=== PATIENT | male | born 1940 | race Two or more races ===

== ENCOUNTER 2025-03-10 06:30 | Inpatient (IN) | payer MEDICARE, BC ==
[2025-03-10] VITALS (41 sets, daily range): BP systolic 106–186; BP diastolic 30–143; PULSE 68–112; RESP 11–26; TEMP 97.8–99.5; O2SAT 92–99
[~2025-03-10] VITALS: Ht 165.1 cm; Wt 63.5 kg
[~2025-03-10 06:30] MED LIST: ATOR20TA50 PO; CLOP75TA28 PO; ISOS1TAB28 PO; METF-929 PO; METH500T44 PO; METO25TA5 PO; MONT-8 PO; NITR0.4S29 SL; OMEP20TA PO; SITA100T7 PO
[2025-03-10] MEDS: VERAPAMIL 2.5MG/ML INJ 2ML VIAL IV ONE (08:04)
[2025-03-10] MEDS: ANGIOMAX 250 MG VIAL IV ONE ×2 (08:04→09:11)
[2025-03-10] MEDS: HEPARIN SODIUM (PORCINE) 5000 UNITS/ML 1ML VIAL ONE (08:04)
[2025-03-10] MEDS: SODIUM CHL 0.9% 50 ML ONE ×2 (08:05→09:11)
[2025-03-10] MEDS: fentaNYL CITRATE 100 MCG/2 ML VL ONE (08:05)
[2025-03-10] MEDS: MIDAZOLAM HCL 2MG/2ML 2ml VIAL (1mg/ml) ONE ×2 (08:05→10:16)
[2025-03-10] MEDS: NITROGLYCERIN 50MG/250ML 250 ML IV ONE (08:05)
[2025-03-10] MEDS: LIDOCAINE 2%HCL (LOCAL ANESTH.) INJ 20ML MDV ONE (08:12)
[2025-03-10] MEDS: hydrALAZINE HCL 20 MG/ML VL ONE (08:45)
[2025-03-10] MEDS: IODIXANOL 320MG/ML 100ML BTL IV ONE ×3 (09:02→10:18)
[2025-03-10] MEDS: HYDROmorphone HCL 2 MG/ML VL/or syr ONE (09:03)
[2025-03-10] MEDS: TICAGRELOR 90 MG TAB ONE (10:17)
--- NOTE | 2025-03-10 11:45 | DVHOP2 ---
Operative Report Procedures performed: Left heart catheterization and bilateral coronary angiogram Moderate sedation lasting more than 90 minutes PCI/drug-eluting stent deployment of mid and distal LAD Balloon angioplasty of ramus intermedius Attempted Balloon angioplasty of proximal LCX Diagnosis: Multivessel coronary artery disease Status post PCI/drug-eluting stent deployment of mid and distal LAD. Ramus intermedius had 90% lesion, status post balloon angioplasty LCX: LCX had up to 95% lesion prior to the patent stent in it, status post attempted balloon angioplasty RCA: RCA had up to 70% in stent stenosis LVEF: 65% Cardiac suggestion for management: Dual antiplatelet therapy (loaded with Brilinta/aspirin) for at least 1 year High potency statin, beta blockers, AMY inhibitors versus ARB Optimized medical therapy Lifestyle and risk factor modifications Medical therapy for lesions in RCA/LCX/ramus intermedius is suggested (if patient is symptomatic, PCI in higher level of care can be justified) Findings: LVEF: 65% LVEDP: 15 mm Hg There was no transaortic valve pressure gradient Left main: Left main was coming off the left sinus of Valsalva. It was free of disease. LAD: LAD was coming off the left main. Mid LAD had 95% lesion. Distal LAD had 95% lesion. LCX: LCX was coming off the left main. There was a patent stent in proximal to mid LCX. There was 99% lesion prior to the stent Ramus intermedius: Ramus intermedius was a medium-sized vessel which came off the left main. It had 99% proximal lesion RCA: RCA was coming off the right sinus of Valsalva. It was a dominant vessel. Was a patent stent in proximal RCA. There was a focal 70% lesion in proximal section of the stent. Presentation: Patient is a 84-year-old gentleman who presented to the office with chest pain. Does have history of coronary artery disease and has had PCI in 2005 (LCX/RCA). Other comorbidities include diabetes mellitus, hypertension, low back pain, integrative disc disease and hard of hearing. He has had cholecystectomy before. Echocardiogram revealed ejection fraction of 60-65%, mild concentric left ventricular hypertrophy, mild MVP/MR/TR. Right ventricular systolic pressure was less than 35 mm Hg. Nuclear stress test of December 2024 was abnormal and the patient was sent for cardiac catheterization. Procedure: After obtaining informed consent, the patient was brought to the labourers. He was prepped and draped in sterile fashion. Right radial artery was used for access site. In total, 3 mg of Versed and 100 mcg of fentanyl and 2 mg of Dilaudid was used for moderate sedation (lasting more than 90 minutes). Using Seldinger technique, the right radial artery was accessed and 6 [place]uvian slender sheath was inserted into it. 2.5 mg of verapamil and 200 mcg of nitroglycerin were given as a cocktail into the right radial sheath. 4000 units of heparin was given peripherally. A 5 [place]uvian tiger 4 diagnostic catheter was used to perform left heart catheterization (obtaining pressures and performing left ventriculography) and right coronary angiography. A 5 [place]uv[place] 3.5 JL diagnostic catheter was used to perform left coronary angiography. We did recognize multivessel disease. We did observe the patient's comorbidities and age and decided to proceed with percutaneous intervention. Patient was started on Angiomax. We started with intervening in LAD. A 6 [place]uv[place] XB 3 guiding catheter was used to access the left coronary system. A run-through wire was used to cross the lesions in LAD. A 2.5 by 15 compliant balloon was used to perform predilatation in mid LAD and distal LAD lesions. We proceeded to deploy stents. A 2.25 x 15 drug-eluting desirae stent was deployed across the distal LAD lesion and inflated to 16 atmospheres. A 2.5 x 15 drug-eluting desirae stent was deployed across the mid LAD lesion (inflated to 16 atmospheres). At this point we decided to proceed with intervention in ramus intermedius. Run-through wire crossed the lesion in ramus intermedius. Balloon angioplasty of the ramus intermedius lesion was performed using a 2.5 x 15 compliant balloon repeatedly. Stent could not cross the lesion. At this point we recognized that the lesion in proximal LCX had closed. We used multiple wires to cross the lesion unsuccessfully. We even used balloon over the wire technique unsuccessfully. Patient himself regained flow (BO 3 flow) into LCX territory. Our wire did not cross. Decision was made to forego any further attempts for intervening (patient received 39 minutes of fluoro time and 6300 DAP). He was asymptomatic. There was no EKG changes. It did not have any chest pain. It is of note that prior to intervention in LAD, BO flow into LAD was BO 3 flow. Post intervention in LAD, mid LAD lesion had 0% remaining lesion and distal LAD had 0% remaining lesion. Post intervention in LAD, BO flow into LAD remained BO 3 flow. Prior to intervention in ramus intermedius, BO flow into ramus intermedius was BO 3 flow, post intervention BO flow into ramus intermedius remained BO 3 flow. Post intervention in ramus intermedius (balloon angioplasty) the remaining disease in ramus intermedius was 40%. Previous attempt for intervention in LCX, BO flow into LCX with BO 3 flow, post intervention BO flow into LCX remained BO 3 flow. Lesion in LCX remain the same (we could not cross it). Total bleeding was less than 20 mL. There was no dissection/hematoma/perforation. Patient tolerated procedure with no complications. Right radial artery access site was managed by a TR band. Fluoroscopy time: 39.5 minutes contrast: 280 mL of ShahramipaLAURIE Bennett MD Mar 10, 2025 11:45
--- NOTE | 2025-03-10 13:10 | DVH ---
EXAM: CT STROKE CTH HISTORY: 84-year-old male with no history given. COMPARISON: CT HEAD WO on DOS: 10/20/24 TECHNIQUE: Post IV contrast axial CT images of the head were performed. Sagittal and coronal reformat richrad images were obtained. This CT exam was performed using 1 or more of the following dose reduction techniques: Automated exposure control, adjustment of the mA and/or kv according to patient size, or the use of iterative reconstruction techniques. Radiation Dose: CTDI volume is 65.2 mGy. Dose-length product is 1282.85 mGy*cm FINDINGS: There is mild global brain atrophy. There is mild decreased attenuation in the periventricular white matter. No intracranial hemorrhage, mass, midline shift, hydrocephalus, or evidence of acute large ve ssel infarct. Contrast is identified in the major intracranial vessels and dural venous sinuses. Ther e is complete opacification of the left frontal and maxillary sinuses; partial opacification of the l eft ethmoid air cells; mild mucosal thickening of the left sphenoid sinus. The bilateral mastoid air cells and middle ear spaces are clear. No cranial fracture or scalp edema. There is likely frontal sc alp scarring. IMPRESSION: 1. Global brain atrophy and chronic ischemic changes without evidence of acute intracranial process. 2. Severe left-sided paranasal sinus disease, greatest in the frontal and maxillary sinuses. Recomme nd nonemergent otolaryngology consultation if not already obtained.
--- NOTE | 2025-03-10 13:35 | DVH ---
EXAM: CT ANGIO HEAD/NECK HISTORY: code stroke COMPARISON: CT scan of the head from earlier same day. TECHNIQUE: High-resolution helical CT images of the head and neck were performed with 100 ml omnipaqu e 350 IV contrast utilizing CTA protocol. Sagittal and coronal reformatted images and 3-D MIP reconst ructions were obtained. This CT exam was performed using one or more of the following dose reduction techniques: Automated exposure control, adjustment of the mA and/or kV according to patient size, or use of iterative reconstruction technique. Radiation Dose: CT Dose: CTDI volume is 22.55 mGy. Dose-length product is 840.93 mGy*cm FINDINGS: [place] of Chu: No evidence of aneurysmal dilatation or significant stenosis about the ci rcle of Chu. The bilateral MCAs, ACAs, and web analytics developer are widely patent. There are thick atherosclerotic calcifications of the bilateral cavernous ICAs with mild diffuse luminal stenosis. The bilateral pe trous ICAs are patent. Right carotid system: No significant stenosis of the CCA, ICA, or ECA origin. There are postoperative changes of carotid endarterectomy. Left carotid system: No significant stenosis of the CCA, ICA, or ECA origin. There are postoperative changes of carotid endarterectomy. Vertebrobasilar: The right vertebral artery is patent and dominant. The left vertebral artery is pat ent to the L1 level, then tapers and may be occluded prior to joining the right side. Miscellaneous: There is advanced cervical degenerative disc disease and facet arthropathy. There is s light anterolisthesis C3 on C4 and C4 on C5 without evidence of facet dislocation. There is moderate spinal canal stenosis at C2-C3; ilzq-tr-jowrabhy spinal canal stenosis at C4-C5 and C5-C6. There is m ultilevel significant neural foraminal stenosis in the cervical spine bilaterally. There is complete opacification of the left frontal and maxillary sinuses, partial opacification of the left ethmoid si nus. There is a dental cavity involving the most posterior right mandibular molar tooth. There is adalid cency about the root of the left maxillary 2nd molar tooth. There is likely a dental cavity of the l eft maxillary 3rd molar tooth. IMPRESSION: 1. No aneurysmal dilatation or significant stenosis about the [place] of Chu. 2. No significant stenosis of the bilateral cervical carotid arteries or right vertebral artery. The left vertebral artery tapers distally and may be occluded at its terminus versus appearance due to de velopmental hypoplasia. 3. Postoperative changes of bilateral carotid endarterectomy. 4. Severe left-sided paranasal sinus disease, greatest in the left frontal and maxillary sinuses. 5. Advanced cervical degenerative disc disease and facet arthropathy with multilevel significant neur al foraminal stenosis, moderate spinal canal stenosis C2-C3, and zexu-rr-dfaljypf spinal canal stenos is at C4-C5 and C5-CRecommend follow-up noncontrast MRI of the cervical spine on an outpatient noneme rgent basis for better characterization, especially if the patient complains of upper extremity radic ular symptoms. 6. Multiple dental caries and periapical pathology as detailed above. Recommend outpatient dental co nsultation.
[2025-03-10] MEDS ORDERED: MORPHINE SULFATE INJ 2 MG/ml SYRG IV PRN (14:45)
[2025-03-10] MEDS ORDERED: ACETAMINOPHEN 325 MG TAB PO PRN (14:45)
[2025-03-10] MEDS ORDERED: NITROGLYCERIN 0.4 MG SL TAB SL PRN (14:45)
[2025-03-10] MEDS ORDERED: DOCUSATE SOD 100 MG CAP PO PRN (14:45)
[2025-03-10] MEDS ORDERED: ONDANSETRON HCL 4 MG/2 ML VIAL IV PRN (14:45)
[2025-03-10] MEDS ORDERED: HYDROcodone-ACET 5/325MG TAB PO PRN (14:45)
--- NOTE | 2025-03-10 15:07 | DVHHP2 ---
History of Present Illness Reason for Visit: Left heart cath History of Present Illness Satish Wagner is an 84-year-old male with past medical history of DDD, hypertension, hyperlipidemia, chest pain, and diabetes who came to the hospital for a scheduled outpatient left heart cath. 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 Reversal agents were given and a code stroke was called. Patient did arouse after the reversal agents were given, but still unable to say his name or answer questions. CT of head and CT angio of head and neck completed, no acute findings. Patient will be admitted for neurology evaluation and MRI of brain. Cardiovascular: HTN, hyperipidemia Endocrine: Diabetes Past Surgical History: Cholecystectomy, Other (bilateral carotid endarterectomy, bowel resection), Tonsillectomy Smoke: No ALCOHOL: none Drugs: None Lives: with Family Review of Systems Constitutional: No: Fever, Chills, Sweats, Weakness, Malaise, Other Eyes: No: Pain, Vision change, Conjunctivae inflammation, Eyelid inflammation, Other, Redness ENT: No: Ear pain, Ear discharge, Nose pain, Nose discharge, Nose congestion, Mouth pain, Mouth swelling, Throat pain, Throat swelling, Other Respiratory: No: Cough, Dry, Shortness of breath, SOB with excertion, Wheezing, Hemoptysis, Pleuritic Pain, Sputum, Wheezing, Other Cardiovascular: No: Chest Pain, Palpitations, Orthopnea, Paroxysmal Noc. Dyspnea, Edema, Lt Headedness, Other Gastrointestinal: No: Nausea, Vomiting, Abdominal Pain, Diarrhea, Constipation, Melena, Hematochezia, Other Genitourinary: No Dysuria, No Frequency, No Incontinence, No Hematuria, No Retention, No Other Musculoskeletal: No: other, neck pain, shoulder pain, arm pain, back pain, hand pain, leg pain, foot pain Skin: No: Rash, Lesions, Jaundice, Bruising, Other Neurological: Weakness, Change in speech, Confusion; No: Numbness, Incoordination, Seizures, Other Allergies: Coded Allergies: Penicillins (Verified Allergy, Unknown, Rash, 03/06/25) Medications Current Medications Medications Dose Ordered Sig/Lex Route Start Time Stop Time Status Last Admin Dose Admin Ticagrelor 90 mg BID PO 03/10/25 22:00 Aspirin 81 mg DAILY PO 03/11/25 10:00 Exam Vital Signs Vital Signs Date Time Temp Pulse Resp B/P (MAP) Pulse Ox O2 Delivery O2 Flow Rate FiO2 03/10/25 11:07 108 16 148/76 (100) 92 03/10/25 10:07 97.8 97.8 General Appearance: Other (Drowsy, unable to answer questions) HEENT: Atraumatic, PERRLA, Mucous membr. moist/pink (Mucous memebr dry) Respiratory: Clear to auscultation, Normal air movement Cardiovascular: Normal S1, Normal S2, Other (ST) Abdominal: Normal bowel sounds, Soft, No tenderness Extremities: No clubbing, No cyanosis, No edema, Normal pulses Skin: No breakdown, No significant lesion Neuro: Other (Drowsy, unable to answer questions, unable to ambulate, weakness) Labs/Xrays Labs Test 03/10/25 12:50 03/10/25 12:33 Range/Units Activated Partial Thromboplast Time 97.3 *H 24.5-34.5 SEC POC Glucose 239 H 70-106 mg/dl CBC and CMP ordered, awaiting results. Chest X-ray ordered, MRI of brain ordered, SEPSIS Sepsis Screen Physician Orders Cl Left Heart Cath (03/10/25 07:50) Post Cath Vital Signs Q 15min (03/10/25 ) Post Cath Activity Protocol (03/10/25 10:20) Cardiac Diet-2gna,Lofat,Lochol (03/10/25 Lunch) Hold All Metformin For 48 Hour (03/10/25 10:20) Communication Order (03/10/25 10:20) Insert/Manage Urinary Catheter QSHIFT (03/10/25 11:00) Ticagrelor (Brilinta) (03/10/25 22:00) Aspirin Tablet (03/11/25 10:00) Basic Metabolic Panel (03/12/25 10:00) Ct Head Cva (03/10/25 12:20) Stroke Assessment (03/10/25 12:24) Accurate Weight In Kg (03/10/25 12:24) Accucheck (03/10/25 12:24) Angio Head/Neck (03/10/25 12:24) 2 Large Bore Ivs (20mg Or Larg (03/10/25 12:24) Nursing Dysphagia Screen (03/10/25 12:24) Neuro Checks Per Unit Protocol (03/10/25 12:24) Electrocardigram (03/10/25 12:35) *Consult Dr. Andrew Serrano (03/10/25 14:04) Admit (03/10/25 14:45) Code Status (03/10/25 14:45) Hydrocodone-Acet 5/325mg Tab ([place] 5/32 (03/10/25 14:45) Ondansetron Hcl (Zofran) (03/10/25 14:45) Docusate Sodium Capsule (Colace Capsule) (03/10/25 14:45) Fall Risk Precautions In Place QSHIFT (03/10/25 14:45) Condition: Critical (03/10/25 14:45) Acetaminophen Tablet (Tylenol Tablet) (03/10/25 14:45) Nitroglycerin Sublingual (Ntrostat Subli (03/10/25 14:45) Morphine Sulfate Injection (03/10/25 14:45) Stat Ekg For Chest Pain (03/10/25 14:45) Notify Md Of Changes From Base (03/10/25 14:45) Risk Engineer For 24 Hours (03/10/25 14:45) Emergency Dysrhythmia Protocol (03/10/25 14:45) Rhythm Strips Once Every Shift (03/10/25 14:45) Oxygen By Nasal Cannula (03/10/25 14:45) Vital Signs Date Time Temp Pulse Resp B/P (MAP) Pulse Ox O2 Delivery O2 Flow Rate FiO2 03/10/25 11:07 108 16 148/76 (100) 92 03/10/25 10:53 112 14 148/76 (100) 96 03/10/25 10:38 102 11 155/98 (117) 96 03/10/25 10:22 95 19 138/67 (90) 97 03/10/25 10:19 96 19 142/69 (93) 95 03/10/25 10:07 97.8 102 19 153/117 (129) 94 97.8 Medications Medications Dose Ordered Sig/Lex Route Start Time Stop Time Status Last Admin Dose Admin Iodixanol 64,000 mg STK-MED ONCE IV 03/10/25 07:33 03/10/25 07:30 DC 03/10/25 10:18 64,000 MG Assessment/Plan Assessment/Plan Assessment: Possible stroke, Possible adverse reaction to sedation, Coronary artery disease, Diabetes, Hypertension, Hyperlipidemia, Plan: Admit to SDU, Neurology consult, Cardiology consult, MRI of brain, IV hydration, Home medications reconciled, Plan discussed with: Patient, Son My Orders Orders - AUGUSTUS WATKINS Procedure Category Date Status Time Admit ADMIT 03/10/25 Transmitted 14:45 Code Status CODE 03/10/25 Transmitted 14:45 Hydrocodone-Acet [facility] 03/10/25 Transmitted 5/325mg Tab ([place] 14:45 Ondansetron Hcl [facility] 03/10/25 Verified (Zofran) 14:45 Docusate Sodium [facility] 03/10/25 Verified Capsule (Colace 14:45 Fall Risk Precautions [facility] 03/10/[address] 14:45 Condition: Critical [facility] 03/10/25 Verified 14:45 Acetaminophen Tablet [facility] 03/10/25 Verified (Tylenol Tablet) 14:45 Nitroglycerin [facility] 03/10/25 Verified Sublingual (Ntrostat 14:45 Morphine Sulfate [facility] 03/10/25 Verified Injection 14:45 Stat Ekg For Chest [facility] 03/10/25 Verified Pain 14:45 Notify Md Of Changes [facility] 03/10/25 Verified From Base 14:45 Risk Engineer For [facility] 03/10/25 Verified 24 Hours 14:45 Emergency Dysrhythmia [facility] 03/10/25 Verified Protocol 14:45 Rhythm Strips Once [facility] 03/10/25 Verified Every Shift 14:45 Oxygen By Nasal RT 03/10/25 Verified Cannula 14:45 Date of Service: Mar 10, 2025 Billing Provider: AUGUSTUS WATKINS Common Visit Codes: [id number] INP/OBS CARE (HIGH) AUGUSTUS WATKINS Mar 10, 2025 15:07
--- NOTE | 2025-03-10 15:49 | DVH ---
EXAM: XY CHEST PORTABLE HISTORY: FOR MRI TECHNIQUE: 1 view of the chest COMPARISON: XR CHEST 2 VIEWS on DOS: 03/03/25 FINDINGS/IMPRESSION: LUNGS: No pleural effusion, consolidation, or pneumothorax. Central pulmonary vascular congestion. Peripheral interstitial edema MEDIASTINUM: Unremarkable BONES: No acute osseous abnormality OTHER: None
--- NOTE | 2025-03-10 16:08 | DVH ---
PROCEDURE: MRI BRAIN HEAD WO CONTRAST Indication: R/O stroke COMPARISON: 03/10/2025 TECHNIQUE: Multiplanar multisequence images of the brain are obtained. FINDINGS: Examination degraded by motion There is small region friction in the left cerebellum measuring 6 mm. Bhfg-qk-dhzjjoxi periventricul ar and subcortical white matter T2 and FLAIR hyperintense changes. There is no intracranial hemorrhag e. No extra-axial fluid collection, mass effect or midline shift. The ventricles are midline and norm al in size. The cisterns are patent. Normal intracranial flow voids are preserved. No abnormal suscep tibility signal. Frontal, ethmoid, left maxillary sinus disease. Bilateral mastoid effusions The visualized orbits are unremarkable. IMPRESSION: Examination degraded by motion. 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 Azml-uz-pydylodb chronic microvascular ischemic changes. Paranasal sinus disease. Bilateral mastoid effusions.
[2025-03-10] MEDS: SODIUM CHLORIDE 0.9% 1,000 ML IV ONE (16:11)
[2025-03-10] MEDS: hydrALAZINE HCL 20 MG/ML VL IV PRN (16:14)
[2025-03-10] MEDS: METOPROLOL TARTRATE 25 MG TAB PO ONE (16:15)
[2025-03-10] MEDS ORDERED: DEXTROSE (50%) 50ML SYRG IV PRN (18:15)
[2025-03-10] MEDS: InsuLIN REG 1unit/0.01ml Soln (100units/ml) ONE (18:20)
--- NOTE | 2025-03-10 18:21 | DVHINCON2 ---
Date of service: Mar 10, 2025 History of Present Illness HPI Patient is a 84-year-old gentleman who originally presented to the hospital for elective cardiac catheterization. He had presented to the office with occasional chest discomfort. He has past history included coronary artery disease and status post Old PCIs. And nuclear stress test of December 2024 was abnormal in the patient who had been sent for cardiac catheterization. Cardiac catheterization was performed. After cardiac catheterization, the patient's somehow became confused and had some dysarthria. Code stroke was called. Imaging of the brain has been performed. MRI questions small cerebral CVA. Patient has been started on aspirin/Brilinta (had PCI/drug-eluting stent deployment of LAD and balloon angioplasty of ramus intermedius). Home Meds Reported Medications Isosorbide Mononitrate (Isosorbide Mononitrate Er) 30 Mg Tab, 30 MG PO DAILY for CHEST PAIN, MG 03/06/25 Metformin HCl (Metformin Hydrochloride) 1,000 Mg Tab, 1000 MG PO DAILY for DIABETES, TAB 03/06/25 Clopidogrel Bisulfate (Plavix) 75 Mg Tab, 1 TAB PO DAILY for S/P CARDIAC STENTS, #90 TAB 1 Refill 03/06/25 Methylcellulose (Laxative) (Fiber Therapy) 500 Mg Tab, 500 MG PO DAILY for CONSTIPATION, TAB 03/06/25 Montelukast Sodium (MONTELUKAST SODIUM) 10 Mg Tab, 1 TAB PO DAILY, #30 TAB 5 Refills 03/06/25 Metoprolol Tartrate (Metoprolol Tartrate) 25 Mg Tab, 1 TAB PO BID for HTN, #180 TAB 1 Refill 03/06/25 Nitroglycerin (NTROSTAT SUBLINGUAL) 0.4 Mg Sl, 0.4 MG SL PRN for CHEST PAIN, TAB *MAY REPEAT EVERY 5 MINUTES X 3 TOTAL IF NO RELIEF, INITIATE ANALGESIC THERAPY. NOTIFY PHYSICIAN *Do not crush. 03/06/25 Sitagliptin Phosphate (Januvia) 100 Mg Tab, 1 TAB PO DAILY for DIABETES, #30 TAB 5 Refills 03/06/25 Omeprazole (Gnp Omeprazole) 20 Mg Tab, 40 MG PO DAILY for GERD, TAB 03/06/25 Atorvastatin Calcium (ATORVASTATIN CALCIUM) 20 Mg Tab, 1 TAB PO DAILY for High Cholesterol, #30 TAB 5 Refills 03/06/25 Past Medical History Others Past medical history included coronary artery disease and old history of PCI, degenerative disc disease, low back pain, diabetes mellitus, hypertension and history of poor hearing. Drugs: None Lives with: With family Review of Systems All Other Systems Fourteen point review of system was performed. Relevant findings as per above and as per HPI. Otherwise negative H&P Exam Vital Signs Vital Signs Date Time Temp Pulse Resp B/P (MAP) Pulse Ox O2 Delivery O2 Flow Rate FiO2 03/10/25 17:37 81 16 134/55 (81) 95 03/10/25 15:00 98.8 98.8 Head Exam: Normal inspection Eye Exam: bilateral eye PERRL Mouth: Normal Inspection Pulmonary/Respiratory: Lungs clear Cardiovascular/Chest: Regular rate Peripheral Pulses: 2+ carotid (R), 2+ carotid (L), 2+ femoral (R), 2+ femoral (L), 2+ dorsalis pedis (R), 2+ dorsalis pedis (L), 2+ Radial (R), 2+ Radial (L) Abdominal Exam: Normal bowel sounds, Soft Labs/Xrays Labs Test 03/10/25 12:50 03/10/25 12:33 Range/Units Activated Partial Thromboplast Time 97.3 *H 24.5-34.5 SEC POC Glucose 239 H 70-106 mg/dl Assessment/Plan Plan Patient is a 84-year-old gentleman who originally presented to the hospital for elective cardiac catheterization. He had presented to the office with occasional chest discomfort. He has past history included coronary artery disease and status post Old PCIs. And nuclear stress test of December 2024 was abnormal in the patient who had been sent for cardiac catheterization. Cardiac catheterization was performed. After cardiac catheterization, the patient's somehow became confused and had some dysarthria. Code stroke was called. Imaging of the brain has been performed. MRI questions small cerebral CVA. Patient has been started on aspirin/Brilinta (had PCI/drug-eluting stent deployment of LAD and balloon angioplasty of ramus intermedius). Denies acute distress. Somehow confused. No JVD. Mucosa is pink and wet. No carotid bruit. No goiter. Not using accessory muscles of breathing. Lungs are clear to auscultation. Cardiac: Regular, no thrill/gallop. Lungs are clear to auscultation Abdomen is soft. Bowel sound is positive. There is no gross mass/hepatomegaly. There is no peripheral edema. Dorsalis pedis is 2+ bilateral. Cardiac catheterization access site (right radial) without hematoma. Capillary filling is 2+. Past medical history included coronary artery disease and old history of PCI, degenerative disc disease, low back pain, diabetes mellitus, hypertension and history of poor hearing. Outside Echocardiogram revealed ejection fraction of 60 65%, mild concentric left ventricular hypertrophy, mild mitral valve prolapse/MR/TR. There was moderate mitral annular calcification and right ventricular systolic pressure was less than 35 mm Hg. Nuclear stress test of December 2024 was abnormal. Chest x-ray revealed: LUNGS: No pleural effusion, consolidation, or pneumothorax. Central pulmonary vascular congestion. Peripheral interstitial edema MEDIASTINUM: Unremarkable BONES: No acute osseous abnormality OTHER: None CT of the head revealed: IMPRESSION: 1. Global brain atrophy and chronic ischemic changes without evidence of acute intracranial process. 2. Severe left- sided paranasal sinus disease, greatest in the frontal and maxillary sinuses. Recommend nonemergent otolaryngology consultation if not already obtained. CT angio of the head and neck revealed: MRI of the brain revealed: IMPRESSION: Examination degraded by motion. 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 [id number]-[id number] chronic microvascular ischemic changes. Paranasal sinus disease. Bilateral mastoid effusions. Cardiac catheterization revealed: Multivessel coronary artery disease. Status post PCI/drug-eluting stent deployment of mid/distal LAD. Status post balloon angioplasty of ramus intermedius. Status post attempted balloon angioplasty of LCX. Remaining vessels to be managed medically Patient is a 84-year-old gentleman who originally presented with elective cardiac catheterization secondary to abnormal stress test and chest pain. Patient was found to have multivessel coronary artery disease. Patient had PCI/drug-eluting stent deployment of LAD. Balloon angioplasty of ramus intermedius was performed. Post cardiac catheterization, the patient became somewhat confused and code stroke was called. 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, small cerebellar Coronary artery disease status post PCI Diabetes mellitus Hypertension Poor hearing Cardiac suggestion for management: Manage on telemetry Follow-up electrolytes and kidney function tests and correct abnormalities Dual antiplatelet therapy (Brilinta/aspirin) for at least 1 year High potency statin Beta zane, AMY inhibitor versus ARB Echocardiogram Neurology consultation/evaluation Further evaluation and management depends on the above and clinical course Thank you for consultation A total of 75 minutes was spent reviewing the patient record, examining the patient, making a diagnostic and therapeutic plan, discussing this plan with medical personnel, following up on diagnostic studies and following the patient for clinical stability excluding any and all procedures. At least 50% of this time was spent in direct, [id number] contact. Thank you for allowing me to participate in this patient's care. Further recommendations will depend on patient's clinical course. Please do not hesitate to contact me if you have any questions or concerns. This medical document was created using electronic medical record system with [employer] computerized dictation system. Although this document has been carefully reviewed, there may still be some phonetic and typographical errors. These areas are purely typographical due to the imperfection of the software programs, and do not reflect any compromise in the patient's medical care. Plan discussed with: Son (on the phone), Other (nurse) LAURIE URIOSTEGUI MD Mar 10, 2025 18:21
[2025-03-10 20:02] LABS: Alanine Aminotransferase 18 U/L (7-40); Albumin 4.5 g/dL (3.2-4.8); Alkaline Phosphatase 92 U/L (46-116); Anion Gap 13 (5-15); BUN/Creatinine Ratio 7.4 (10.0-20.0); Bilirubin, Total 0.9 mg/dL (0.2-1.0); Calcium 9.1 mg/dL (8.7-10.4); Carbon Dioxide 21 mmol/L (20-31); Chloride 104 mmol/L (98-107); Potassium 3.7 mmol/L (3.5-5.1); Sodium 138 mmol/L (136-145); Total Protein 7.4 g/dL (5.7-8.2)
[2025-03-10 20:04] LABS: Blood Urea Nitrogen 7 mg/dL (9-23); Glucose 246 mg/dL (74-106)
[2025-03-10 20:10] LABS: Hematocrit 42.2 % (41.0-53.0); Hemoglobin 14.1 g/dL (13.5-17.5); Mean Corpuscular Hemoglobin 28.8 pg (28.0-32.0); Mean Corpuscular Volume 86.0 fL (80.0-100.0); Nucleated Red Blood Cells % 0.0 %
--- NOTE | 2025-03-10 21:48 | DVHINCON2 ---
Date of service: Mar 10, [address] Alvarado Reason for Consultation ALOC History of Present Illness Mr. Wagner is a 84 years old right-handed gentleman with a history of hypertension, diabetes, dyslipidemia, angina, degenerative disc disease/low back pain, he came to the [facility] on 03/10/2025 for a scheduled cataract catheterization, but he became unresponsive after receiving 3 mg Versed, 2 mg Dilaudid and one 100 mg fentanyl, but the patient woke up after review both agents were administered, but he was not able to say his name or answer questions. MR brain scan showed evidence of acute left cerebellum hemisphere stroke At this time when they see him in the evening, he is awake, socially appropriate, oriented to person, place, but he does not remember what happened to him. According to his oephpyvu-wq-coz, the patient has no memory difficulty/cognitive dysfunction, seizure or stroke previously [phone] WBC/HB/PLT/MCV, 03/10/2025: 14.1/14.1/285/86 PT/INR/PTT, 03/10/25: //97.3 TBI/AST/ALT/AP, 03/10/2025: 049/85/18/92 CTA head, 03/10/2025: 1. Global brain atrophy and chronic ischemic changes without evidence of acute intracranial process. 2. Severe left-sided paranasal sinus disease, greatest in the frontal and maxillary sinuses. Recommend nonemergent otolaryngology consultation if not already obtained. CTA neck, head, 03/10/2025: 1. No aneurysmal dilatation or significant stenosis about the [place]. 2. No significant stenosis of the bilateral cervical carotid arteries or right vertebral artery. 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 3. Postoperative changes of bilateral carotid endarterectomy. 4. Severe left-sided paranasal sinus disease, greatest in the left frontal and maxillary sinuses. MRI head, 03/10/2025: Small acute infarct left cerebellar hemisphere measuring 6 mm. [id number]-[id number] chronic microvascular ischemic changes. Paranasal sinus disease. Bilateral mastoid effusions. Past Medical History Hypertension, diabetes, dyslipidemia, angina, degenerative disc disease/low back pain Past Surgical History Bilateral carotid endarterectomy, bowel resection, cholecystectomy, tonsillectomy Family History Heart disease Social History He has no history of tobacco smoke, drug or alcohol abuse Allergies: Coded Allergies: Penicillins (Verified Allergy, Unknown, Rash, 03/06/25) Home Meds Reported Medications Isosorbide Mononitrate (Isosorbide Mononitrate Er) 30 Mg Tab, 30 MG PO DAILY for CHEST PAIN, MG 03/06/25 Metformin HCl (Metformin Hydrochloride) 1,000 Mg Tab, 1000 MG PO DAILY for DIABETES, TAB 03/06/25 Clopidogrel Bisulfate (Plavix) 75 Mg Tab, 1 TAB PO DAILY for S/P CARDIAC STENTS, #90 TAB 1 Refill 03/06/25 Methylcellulose (Laxative) (Fiber Therapy) 500 Mg Tab, 500 MG PO DAILY for CONSTIPATION, TAB 03/06/25 Montelukast Sodium (MONTELUKAST SODIUM) 10 Mg Tab, 1 TAB PO DAILY, #30 TAB 5 Refills 03/06/25 Metoprolol Tartrate (Metoprolol Tartrate) 25 Mg Tab, 1 TAB PO BID for HTN, #180 TAB 1 Refill 03/06/25 Nitroglycerin (NTROSTAT SUBLINGUAL) 0.4 Mg Sl, 0.4 MG SL PRN for CHEST PAIN, TAB *MAY REPEAT EVERY 5 MINUTES X 3 TOTAL IF NO RELIEF, INITIATE ANALGESIC THERAPY. NOTIFY PHYSICIAN *Do not crush. 03/06/25 Sitagliptin Phosphate (Januvia) 100 Mg Tab, 1 TAB PO DAILY for DIABETES, #30 TAB 5 Refills 03/06/25 Omeprazole (Gnp Omeprazole) 20 Mg Tab, 40 MG PO DAILY for GERD, TAB 03/06/25 Atorvastatin Calcium (ATORVASTATIN CALCIUM) 20 Mg Tab, 1 TAB PO DAILY for High Cholesterol, #30 TAB 5 Refills 03/06/25 Current Medications Current Medications Medications (Trade) Dose Ordered Sig/Lex Route PRN Reason Start Time Stop Time Status Last Admin Ticagrelor (Brilinta) 90 mg BID PO 03/10/25 22:00 Aspirin 81 mg DAILY PO 03/11/25 10:00 Acetaminophen/ Hydrocodone Bitart (Aldrich 5/325MG Tab) 1 tab Q4HP PRN PO MODERATE PAIN (4-6 PAIN SCALE) 03/10/25 14:45 Ondansetron HCl (Zofran) 4 mg Q4HP PRN IV NAUSEA / VOMITING 03/10/25 14:45 Docusate Sodium (Colace Capsule) 100 mg BIDPRN PRN PO FOR CONSTIPATION 03/10/25 14:45 Acetaminophen (Tylenol Tablet) 650 mg Q6HP PRN PO PAIN SCALE 1-3 OR TEMP>100.4 03/10/25 14:45 Nitroglycerin (Ntrostat Sublingual) 0.4 mg Q5MINP PRN SL FOR CHEST PAIN 03/10/25 14:45 Morphine Sulfate 2 mg Q30M PRN IV FOR CHEST PAIN 03/10/25 14:45 Atorvastatin Calcium (Lipitor) 20 mg DAILY PO 03/11/25 10:00 Clopidogrel Bisulfate (Plavix) 75 mg DAILY PO 03/11/25 10:00 03/10/25 18:08 DC Metoprolol Tartrate (Lopressor Tablet) 25 mg BID PO 03/10/25 22:00 Montelukast Sodium (Singulair Tablet) 10 mg DAILY PO 03/11/25 10:00 Patient Own Medication 30 mg DAILY PO 03/11/25 10:00 UNV Patient Own Medication 40 mg DAILY PO 03/11/25 10:00 UNV Patient Own Medication 1 tab DAILY PO 03/11/25 10:00 Hydralazine HCl (Apresoline Injection) 10 mg Q6HP PRN IV SBP>150 03/10/25 15:45 03/10/25 16:14 Isosorbide Mononitrate (Imdur Er Tablet) 30 mg DAILY PO 03/11/25 10:00 Pantoprazole Sodium (Protonix Tablet) 40 mg DAILY PO 03/11/25 10:00 Diagnostic Test (Pha) (Accu-Chek Comfort Curve T) 1 strip ACHS 03/10/25 22:00 Insulin Human Regular (InsuLIN R) ACHS SC 03/10/25 22:00 Dextrose 50 ml UD PRN IV Blood Sugar LESS THAN 60 03/10/25 18:15 Review of Systems As above, the other systems are negative Vital Signs Vital Signs Date Time Temp Pulse Resp B/P (MAP) Pulse Ox O2 Delivery O2 Flow Rate FiO2 03/10/25 19:39 91 18 130/64 (86) 03/10/25 19:22 98 03/10/25 18:20 99.5 99.5 03/10/25 18:20 Room Air* 0 21 Physical Exam GENERAL EXAM: General: the patient is well developed and nourished. No acute distress. HEENT: Normocephalic, neck is supple, no carotid bruits. No mass. RESPIRATORY: Normal respiratory effort with symmetrical lung expansion. Lungs clear to auscultation. CARDIOVASCULAR: Regular rate and rhythm with no murmurs. S1, S2. ABDOMEN: Soft, nontender, normal bowel sound NEUROLOGICAL: MENTAL STATUS: Awake and alert. Oriented to person, place SPEECH, LANGUAGE, HIGHER CORTICAL FUNCTION: no aphasia or dysathria. CRANIAL NERVES: #2: Intact visual dangelo to confrontation. The optic discs were sharp #3,4,6: Pupils are equal, round and reactive. EOMs full and conjugate. No nystagmus. #5: Facial sensation intact in all three divisions bilaterally. Mandibular strength intact. #7: Facial muscles symmetrical and strength intact. #8: Hearing grossly normal to voice. #9,10: Uvula and soft palate rise in the midline. Swallow and voice are normal. #11: Trapezius and sternomastoid strength intact bilaterally. #12: Tongue midline. No fasciculations or atrophy. SENSATION: Sensation to touch and pinprick is normal. MOTOR: Normal tone in the upper and lower extremity. Normal muscle bulk. No fasciculations. No abnormal movements or posturing. Muscle strength of the major groups in the upper extremities is 5/5. Muscle strength of the major groups in the lower extremities is 5/5. REFLEXES: Deep tendon reflexes are symmetrical. No pathological reflexes. CEREBELLAR/COORDINATION: Finger to nose is normal bilaterally. GAIT/STATION: deferred. Labs/Diagnostic Data Labs Test 03/10/25 19:06 03/10/25 18:07 03/10/25 12:50 Range/Units White Blood Count 14.1 H 4.4-10.8 10^3/uL Red Blood Count 4.90 4.5-5.90 10^6/uL Hemoglobin 14.1 13.5-17.5 g/dL Hematocrit 42.2 41.0-53.0 % Mean Corpuscular Volume 86.0 80.0-100.0 fL Mean Corpuscular Hemoglobin 28.8 28.0-32.0 pg Mean Corpuscular Hemoglobin Concent 33.5 32.0-36.0 g/dL Red Cell Distribution Width 15.5 H 11.8-14.3 % Platelet Count 285 140-450 10^3/uL Mean Platelet Volume 8.4 6.9-10.8 fL Neutrophils (%) (Auto) 88.7 H 37.0-80.0 % Lymphocytes (%) (Auto) 4.3 L 10.0-50.0 % Monocytes (%) (Auto) 6.7 0.0-12.0 % Eosinophils (%) (Auto) 0.0 0.0-7.0 % Basophils (%) (Auto) 0.3 0.0-2.0 % Neutrophils # (Auto) 12.5 H 1.6-8.6 10 ^3/uL Lymphocytes # (Auto) 0.6 0.4-5.4 10 ^3/uL Monocytes # (Auto) 0.9 0-1.3 10 ^3/uL Eosinophils # (Auto) 0 0-0.8 10 ^3/uL Basophils # (Auto) 0 0-0.2 10 ^3/uL Nucleated Red Blood Cells 0.0 % Sodium Level 138 136-145 mmol/L Potassium Level 3.7 3.5-5.1 mmol/L Chloride Level 104 98-107 mmol/L Carbon Dioxide Level 21 20-31 mmol/L Anion Gap 13 5-15 Blood Urea Nitrogen 7 L 9-23 mg/dL Creatinine 0.94 0.700-1.30 mg/dL Glomerular Filtration Rate Calc 79 >90 mL/min BUN/Creatinine Ratio 7.4 L 10.0-20.0 Serum Glucose 246 H 74-106 mg/dL Calcium Level 9.1 8.7-10.4 mg/dL Total Bilirubin 0.9 0.2-1.0 mg/dL Aspartate Amino Transferase (AST) 85 H 13-40 U/L Alanine Aminotransferase (ALT) 18 7-40 U/L Alkaline Phosphatase 92 46-116 U/L Total Protein 7.4 5.7-8.2 g/dL Albumin 4.5 3.2-4.8 g/dL POC Glucose 228 H 70-106 mg/dl Activated Partial Thromboplast Time 97.3 *H 24.5-34.5 SEC Assessment Altered mental status/coma Toxic encephalopathy Partial complex seizure, less likely Acute stroke Like incidental finding Complication of cataract catheterization Unlikely the mental status change was caused by the stroke Coronary artery disease, status post stenting Plan/Recommendation Monitoring Supportive treatment ICU care EEG Plavix 75 mg daily Lipitor 20 mg daily Brilinta 90 mg b.i.d. More recommendation per clinical course Prognosis: Poor This medical document was created using an electronic medical record system with [employer] dictation system. Although this document has been carefully reviewed, there may still be some phonetic and typographical errors. These areas are purely typographical due to imperfections of the software programs, and do not reflect any compromise in the patient's medical care. Plan discussed with: Daughter, Other CHENTE ARMSTRONG MD Mar 10, 2025 21:48
[2025-03-10] MEDS: METOPROLOL TARTRATE 25 MG TAB PO SCH (22:22)
[2025-03-10] MEDS: TICAGRELOR 90 MG TAB PO SCH (22:22)
[2025-03-10] MEDS: ACCU-CHEK COMFORT CURVE STRIP VI SCH (22:24)
[2025-03-10] MEDS: InsuLIN REG 1unit/0.01ml Soln (100units/ml) SC SCH (22:27)
[2025-03-11] VITALS (91 sets, daily range): BP systolic 88–170; BP diastolic 30–85; PULSE 44–110; RESP 8–29; TEMP 97.8–99; O2SAT 96–100
[2025-03-11 04:52] LABS: Hematocrit 40.3 % (41.0-53.0); Hemoglobin 13.3 g/dL (13.5-17.5); Mean Corpuscular Hemoglobin 29.3 pg (28.0-32.0); Mean Corpuscular Volume 88.6 fL (80.0-100.0); Nucleated Red Blood Cells % 0.0 %
[2025-03-11 05:14] LABS: Alanine Aminotransferase 20 U/L (7-40); Albumin 4.0 g/dL (3.2-4.8); Alkaline Phosphatase 78 U/L (46-116); Anion Gap 14 (5-15); BUN/Creatinine Ratio 7.1 (10.0-20.0); Calcium 9.1 mg/dL (8.7-10.4); Carbon Dioxide 20 mmol/L (20-31); Cholesterol 115 mg/dL (< 200); HDL Cholesterol 50 mg/dL (40-59); Magnesium 2.1 mg/dL (1.6-2.6); Potassium 3.5 mmol/L (3.5-5.1); Sodium 142 mmol/L (136-145); Total Protein 7.1 g/dL (5.7-8.2); Triglycerides 106 mg/dL (< 150)
[2025-03-11 05:15] LABS: Bilirubin, Total 1.1 mg/dL (0.2-1.0)
[2025-03-11 05:27] LABS: Chloride 108 mmol/L (98-107)
[2025-03-11 05:28] LABS: Blood Urea Nitrogen 6 mg/dL (9-23); Glucose 132 mg/dL (74-106)
--- NOTE | 2025-03-11 06:47 | DVHPN2 ---
Progress Note - Dictate Date Seen: Mar 11, 2025 Medical Necessity Reason Pt with a Central, PICC or Fol: Yes vital signs Vital Sign Date Time Temp Pulse Resp B/P (MAP) Pulse Ox O2 Delivery O2 Flow Rate FiO2 03/11/25 06:31 163/66 03/11/25 04:31 60 16 100 03/11/25 04:01 98.9 98.9 03/10/25 18:20 Room Air* 0 21 Total Intake and Output 03/10/25 03/10/25 03/11/25 15:00 23:00 07:00 Intake Total 300 ml 778.4 ml 321.6 ml Output Total 2200 ml 350 ml 300 ml Balance -1900 ml 428.4 ml 21.6 ml medications Current Medications Medications Dose Ordered Sig/Lex Route Start Time Stop Time Status Last Admin Dose Admin Ticagrelor 90 mg BID PO 03/10/25 22:00 03/10/25 22:22 90 MG Aspirin 81 mg DAILY PO 03/11/25 10:00 Acetaminophen/ Hydrocodone Bitart 1 tab Q4HP PRN PO 03/10/25 14:45 Ondansetron HCl 4 mg Q4HP PRN IV 03/10/25 14:45 Docusate Sodium 100 mg BIDPRN PRN PO 03/10/25 14:45 Acetaminophen 650 mg Q6HP PRN PO 03/10/25 14:45 Nitroglycerin 0.4 mg Q5MINP PRN SL 03/10/25 14:45 Morphine Sulfate 2 mg Q30M PRN IV 03/10/25 14:45 Atorvastatin Calcium 20 mg DAILY PO 03/11/25 10:00 Metoprolol Tartrate 25 mg BID PO 03/10/25 22:00 03/10/25 22:22 25 MG Montelukast Sodium 10 mg DAILY PO 03/11/25 10:00 Patient Own Medication 30 mg DAILY PO 03/11/25 10:00 UNV Patient Own Medication 40 mg DAILY PO 03/11/25 10:00 UNV Patient Own Medication 1 tab DAILY PO 03/11/25 10:00 Hydralazine HCl 10 mg Q6HP PRN IV 03/10/25 15:45 03/11/25 06:31 10 MG Isosorbide Mononitrate 30 mg DAILY PO 03/11/25 10:00 Pantoprazole Sodium 40 mg DAILY PO 03/11/25 10:00 Diagnostic Test (Pha) 1 strip ACHS 03/10/25 22:00 03/11/25 06:14 1 STRIP Insulin Human Regular ACHS SC 03/10/25 22:00 03/11/25 06:17 2 UNITS Dextrose 50 ml UD PRN IV 03/10/25 18:15 laboratory and microbiology Laboratory Tests 03/11/25 04:05 Test 03/11/25 04:05 Range/Units Serum Glucose 132 #H 74-106 mg/dL Assessment/Plan Patient is a 84-year-old gentleman who originally presented to the hospital for elective cardiac catheterization. He had presented to the office with occasional chest discomfort. He has past history included coronary artery disease and status post Old PCIs. And nuclear stress test of December 2024 was abnormal in the patient who had been sent for cardiac catheterization. Cardiac catheterization was performed. After cardiac catheterization, the patient's somehow became confused and had some dysarthria. Code stroke was called. Imaging of the brain has been performed. MRI questions small cerebral CVA. Patient has been started on aspirin/Brilinta (had PCI/drug-eluting stent deployment of LAD and balloon angioplasty of ramus intermedius). Denies acute distress. Alert and oriented X3, No JVD. Mucosa is pink and wet. No carotid bruit. No goiter. Not using accessory muscles of breathing. Lungs are clear to auscultation. Cardiac: Regular, no thrill/gallop. Lungs are clear to auscultation Abdomen is soft. Bowel sound is positive. There is no gross mass/hepatomegaly. There is no peripheral edema. Dorsalis pedis is 2+ bilateral. Cardiac catheterization access site (right radial) without hematoma. Capillary filling is 2+. Past medical history included coronary artery disease and old history of PCI, degenerative disc disease, low back pain, diabetes mellitus, hypertension and history of poor hearing. Outside Echocardiogram revealed ejection fraction of 60 65%, mild concentric left ventricular hypertrophy, mild mitral valve prolapse/MR/TR. There was moderate mitral annular calcification and right ventricular systolic pressure was less than 35 mm Hg. Nuclear stress test of December 2024 was abnormal. Hemoglobin: 14.1 - 13.3 WBC: 14.1 - 14.2 Creatinine: 0.94 - 0.85 Potassium: 3.7 - 3.5 Magnesium: 2.1 TSH: 0.85 BNP: 638.29 Chest x-ray revealed: LUNGS: No pleural effusion, consolidation, or pneumothorax. Central pulmonary vascular congestion. Peripheral interstitial edema MEDIASTINUM: Unremarkable BONES: No acute osseous abnormality OTHER: None CT of the head revealed: IMPRESSION: 1. Global brain atrophy and chronic ischemic changes without evidence of acute intracranial process. 2. Severe left- sided paranasal sinus disease, greatest in the frontal and maxillary sinuses. Recommend nonemergent otolaryngology consultation if not already obtained. CT angio of the head and neck revealed: MRI of the brain revealed: IMPRESSION: Examination degraded by motion. 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 [id number] chronic microvascular ischemic changes. Paranasal sinus disease. Bilateral mastoid effusions. Cardiac catheterization revealed: Multivessel coronary artery disease. Status post PCI/drug-eluting stent deployment of mid/distal LAD. Status post balloon angioplasty of ramus intermedius. Status post attempted balloon angioplasty of LCX. Remaining vessels to be managed medically Patient is a 84-year-old gentleman who originally presented with elective cardiac catheterization secondary to abnormal stress test and chest pain. Patient was found to have multivessel coronary artery disease. Patient had PCI/drug-eluting stent deployment of LAD. Balloon angioplasty of ramus intermedius was performed. Post cardiac catheterization, the patient became somewhat confused and code stroke was called. He is found to have small cerebellar CVA. Patient is evaluated by Neurology and the CVA was considered likely incidental finding versus complication of cardiac catheterization. As per Neurology, mental status change was on likely secondary to stroke. Was found to have some leukocytosis, could sepsis have contributed to to the clinical picture? Altered mental status Encephalopathy Acute CVA, small cerebellar Coronary artery disease status post PCI Diabetes mellitus Hypertension Poor hearing Cardiac suggestion for management: Manage on telemetry Follow-up electrolytes and kidney function tests and correct abnormalities Dual antiplatelet therapy (Brilinta/aspirin) for at least 1 year Statin Beta zane, AMY inhibitor versus ARB Awaiting Echocardiogram Neurology follow up Further evaluation and management depends on the above and clinical course A total of 55 minutes was spent reviewing the patient record, examining the patient, making a diagnostic and therapeutic plan, discussing this plan with medical personnel, following up on diagnostic studies and following the patient for clinical stability excluding any and all procedures. At least 50% of this time was spent in direct, pkec-[id number] contact. Thank you for allowing me to participate in this patient's care. Further recommendations will depend on patient's clinical course. Please do not hesitate to contact me if you have any questions or concerns. This medical document was created using electronic medical record system with [employer] computerized dictation system. Although this document has been carefully reviewed, there may still be some phonetic and typographical errors. These areas are purely typographical due to the imperfection of the software programs, and do not reflect any compromise in the patient's medical care. Plan discussed with: Other (nurse) LAURIE URIOSTEGUI MD Mar 11, 2025 06:47
--- NOTE | 2025-03-11 08:42 | ECG ---
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
[2025-03-11] MEDS: IOHEXOL 350 MG/ML 100ML IJ ONE (09:00)
[2025-03-11] MEDS: MONTELUKAST SODIUM 10 MG TAB PO SCH (09:22)
[2025-03-11] MEDS: LOSARTAN POTASSIUM 25 MG TAB PO SCH (09:28)
[2025-03-11] MEDS: ISOSORBIDE MONONITRATE ER 60 MG TAB PO SCH (09:29)
[2025-03-11] MEDS: PANTOPRAZOLE 40 MG TAB PO SCH (09:31)
[2025-03-11] MEDS: ATORVASTATIN 20 MG TAB PO SCH (09:31)
[2025-03-11] MEDS ORDERED: PATIENTS OWN MEDICATION (Omeprazole (Gnp Omeprazole) 40 MG) PO SCH (10:00)
[2025-03-11] MEDS ORDERED: CLOPIDOGREL BISULFATE 75 MG TAB PO SCH (10:00)
[2025-03-11] MEDS ORDERED: PATIENTS OWN MEDICATION (Isosorbide Mononitrate (Isosorbide Mononitrate Er) 30 MG) PO SCH (10:00)
--- NOTE | 2025-03-11 10:34 | DVHPN2 ---
Progress Note - Dictate Date Seen: Mar 11, 2025 Medical Necessity Reason Pt with a Central, PICC or Fol: Yes Subjective Mr. Wagner is a 84 years old right-handed gentleman with a history of hypertension, diabetes, dyslipidemia, angina, degenerative disc disease/low back pain, he came to the [facility] [place] on 03/10/2025 for a scheduled cataract catheterization, but he became unresponsive after receiving 3 mg Versed, 2 mg Dilaudid and one 100 mg fentanyl, but the patient woke up after review both agents were administered, but he was not able to say his name or answer questions. MR brain scan showed evidence of acute left cerebellum hemisphere stroke I have seen and examined the patient, I have talked to his nurse, he is awake, oriented to person place, he knows year and the month, good social skills He has been exposed to sunshine a lot, and he has a lot of skin cancer in the f noreen, status post surgical removal WBC/HB/PLT/MCV, 03/10/2025: 14.1/14.1/285/86 PT/INR/PTT, 03/10/25: //97.3 TBI/AST/ALT/AP, 03/10/2025: 049/85/18/92 CTA head, 03/10/2025: 1. Global brain atrophy and chronic ischemic changes without evidence of acute intracranial process. 2. Severe left-sided paranasal sinus disease, greatest in the frontal and maxillary sinuses. Recommend nonemergent otolaryngology consultation if not already obtained. CTA neck, head, 03/10/2025: 1. No aneurysmal dilatation or significant stenosis about the [place]. 2. No significant stenosis of the bilateral cervical carotid arteries or right vertebral artery. 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 3. Postoperative changes of bilateral carotid endarterectomy. 4. Severe left-sided paranasal sinus disease, greatest in the left frontal and maxillary sinuses. MRI head, 03/10/2025: Small acute infarct left cerebellar hemisphere measuring 6 mm. [id number] chronic microvascular ischemic changes. Paranasal sinus disease. Bilateral mastoid effusions. vital signs Vital Sign Date Time Temp Pulse Resp B/P (MAP) Pulse Ox O2 Delivery O2 Flow Rate FiO2 03/11/25 09:29 131/53 03/11/25 08:00 59 03/11/25 07:00 15 99 03/11/25 04:01 98.9 98.9 03/10/25 18:20 Room Air* 0 21 Total Intake and Output 03/10/25 03/10/25 03/11/25 15:00 23:00 07:00 Intake Total 300 ml 778.4 ml 321.6 ml Output Total 2200 ml 350 ml 300 ml Balance -1900 ml 428.4 ml 21.6 ml medications Current Medications Medications Dose Ordered Sig/Lex Route Start Time Stop Time Status Last Admin Dose Admin Ticagrelor 90 mg BID PO 03/10/25 22:00 03/11/25 09:28 90 MG Aspirin 81 mg DAILY PO 03/11/25 10:00 03/11/25 09:31 81 MG Acetaminophen/ Hydrocodone Bitart 1 tab Q4HP PRN PO 03/10/25 14:45 Ondansetron HCl 4 mg Q4HP PRN IV 03/10/25 14:45 Docusate Sodium 100 mg BIDPRN PRN PO 03/10/25 14:45 Acetaminophen 650 mg Q6HP PRN PO 03/10/25 14:45 Nitroglycerin 0.4 mg Q5MINP PRN SL 03/10/25 14:45 Morphine Sulfate 2 mg Q30M PRN IV 03/10/25 14:45 Atorvastatin Calcium 20 mg DAILY PO 03/11/25 10:00 03/11/25 09:31 20 MG Metoprolol Tartrate 25 mg BID PO 03/10/25 22:00 03/10/25 22:22 25 MG Montelukast Sodium 10 mg DAILY PO 03/11/25 10:00 03/11/25 09:22 10 MG Patient Own Medication 30 mg DAILY PO 03/11/25 10:00 UNV Patient Own Medication 40 mg DAILY PO 03/11/25 10:00 UNV Hydralazine HCl 10 mg Q6HP PRN IV 03/10/25 15:45 03/11/25 06:31 10 MG Isosorbide Mononitrate 30 mg DAILY PO 03/11/25 10:00 03/11/25 09:29 30 MG Pantoprazole Sodium 40 mg DAILY PO 03/11/25 10:00 03/11/25 09:31 40 MG Diagnostic Test (Pha) 1 strip ACHS 03/10/25 22:00 03/11/25 06:14 1 STRIP Insulin Human Regular ACHS SC 03/10/25 22:00 03/11/25 06:17 2 UNITS Dextrose 50 ml UD PRN IV 03/10/25 18:15 Losartan Potassium 12.5 mg DAILY PO 03/11/25 10:00 03/11/25 09:28 12.5 MG objective General: the patient is well developed and nourished. No acute distress. MENTAL STATUS: Subjective SPEECH, LANGUAGE, HIGHER CORTICAL FUNCTION: no aphasia or dysathria. CRANIAL NERVES: Pupils are equal, round and reactive. EOMs full and conjugate. No nystagmus. Facial sensation intact in all three divisions bilaterally. Mandibular strength intact. Facial muscles symmetrical and strength intact. Hard hearing Tongue midline. No fasciculations or atrophy. SENSATION: Sensation to touch and pinprick is normal. MOTOR: Normal tone in the upper and lower extremity. Normal muscle bulk. No fasciculations. No abnormal movements or posturing. Muscle strength of the major groups in the extremities is 5/5. REFLEXES: Deep tendon reflexes are symmetrical. No pathological reflexes. CEREBELLAR/COORDINATION: Finger to nose is normal bilaterally. GAIT/STATION: deferred laboratory and microbiology Laboratory Tests 03/11/25 04:05 Test 03/11/25 04:05 Range/Units Serum Glucose 132 #H 74-106 mg/dL Problem List Altered mental status/coma Toxic encephalopathy Partial complex seizure, less likely Acute stroke Like incidental finding Complication of cataract catheterization Unlikely the mental status change was caused by the stroke Coronary artery disease, status post stenting Skin cancer Assessment/Plan Monitoring Supportive treatment [facility] care EEG Plavix 75 mg daily Lipitor 20 mg daily Brilinta 90 mg b.i.d. More recommendation per clinical course This medical document was created using an electronic medical record system with [employer] dictation system. Although this document has been carefully reviewed, there may still be some phonetic and typographical errors. These areas are purely typographical due to imperfections of the software programs, and do not reflect any compromise in the patient's medical care. Prognosis poor Plan discussed with: Patient, Other Total Time (mins): 40 CHENTE ARMSTRONG MD Mar 11, 2025 10:34
[2025-03-11 11:29] LABS: INR 1.11 (0.9-1.15); Partial Thromboplastin Time 35.4 SEC (24.5-34.5); Prothrombin Time 11.6 sec (9.3-11.8)
[2025-03-11] MEDS: FLUMAZENIL 0.1 MG/ML INJ 10ML MDV IV ONE (11:45)
--- NOTE | 2025-03-11 16:16 | DVHSR ---
APPROVED REPORT EXAM: Two-dimensional and M-mode echocardiogram with Doppler and color Doppler. Blood Pressure: 118/45 mmHg INDICATION s/p PCI RISK FACTORS Height: 5'5", Weight: 139 DIMENSIONS LVDd4.4 (3.8-5.7cm)LA (2D)5.0 (1.9-4.0cm)Aortic Root3.2 (2.0-3.7cm) LVDs3.0 (2.5-4.0cm)LA (MM) (1.9-4.0cm)Aortic Cusp Exc1.0 (1.5-2.0cm) EF (%) 60.0 (55-70%)Rt. Atrium4.1 (1.9-4.0cm)Asc. Aorta2.7 cm IVSd1.1 (0.7-1.1cm)RV (D)3.9 (1.8-2.4cm) PWd1.0 (0.7-1.1cm) Mitral Valve MitralMitral Stenosis E wave1.31m/sMV Mean GR.4mmHg A wave1.42m/sMV Peak GR.8mmHg E/A ratio0.92D MVAcm2 DECEL [id number] 1/2 [id number] IVRTmsDop MVA2.46cm2 Aortic Valve Aortic ValveAortic Stenosis V11.18m/Raudel Mean GR.7mmHg V21.82m/Raudel Peak GR.13mmHg LVOT Diameter1.8 (1.8-2.4cm)Doppler AVA1.65cm2 Pulmonic Valve V21.29m/s Tricuspid Valve TR Velocity2.50m/s [id number] Conclusion Left ventricle: Mild Concentric left ventricular hypertrophy was seen. LVEF was 64%. There was no gross wall motion abnormality. Right ventricle was normal-sized with normal systolic function. Mild biatrial enlargement was seen. Aortic valve was trileaflet. Aortic sclerosis with no stenosis was observed. There was no aortic in sufficiency. There was mild mitral regurgitation. Local calcification of posterior mitral valve brenna flet was observed. There was mild tricuspid regurgitation. There was mild pulmonary valve insufficie ncy. Right ventricular systolic pressure was assessed normal at 28 mm Hg. There was no pericardial effusi on.
--- NOTE | 2025-03-11 16:34 | DVHPNRES ---
Progress Note Date Seen: Mar 11, 2025 Resident Creating Document: TOM TA RESIDENT Medical Necessity Reason Pt with a Central, PICC or Fol: Yes Subjective Review of Systems This is a 84-year-old male with past medical history of coronary artery disease, PTCA x1 in 2005, type 2 diabetes mellitus, skin cancer presented to the hospital for elective left heart catheterization. Nuclear stress done in December 2024 was abnormal and patient had mentioned intermittent chest discomfort since last couple of month. Cardiac catheterization was performed, after cardiac catheterization the patient has became confused and had some dysarthria. Code Stroke was called. MRI of the brain showed small acute infarct left cerebellar hemisphere measuring 6 mm. Patient has been started on aspirin/Brilinta (had PCI/drug-eluting stent deployment of LAD and balloon angioplasty of ramus intermedius). Patient was seen and examined in the ICU on the bedside. He is alert oriented x3. No active complaint, denies any weakness any part of the body, headache, dysarthria or speech difficulties. Objective vital signs Vital Sign Date Time Temp Pulse Resp B/P (MAP) Pulse Ox O2 Delivery O2 Flow Rate FiO2 03/11/25 15:00 74 10 110/45 (66) 100 03/11/25 08:00 Nasal Cannula* 2 28 03/11/25 08:00 99.0 99.0 Total Intake and Output 03/10/25 03/10/25 03/11/25 15:00 23:00 07:00 Intake Total 300 ml 778.4 ml 321.6 ml Output Total 2200 ml 350 ml 300 ml Balance -1900 ml 428.4 ml 21.6 ml medications Current Medications Medications Dose Ordered Sig/Lex Route Start Time Stop Time Status Last Admin Dose Admin Ticagrelor 90 mg BID PO 03/10/25 22:00 03/11/25 09:28 90 MG Aspirin 81 mg DAILY PO 03/11/25 10:00 03/11/25 09:31 81 MG Acetaminophen/ Hydrocodone Bitart 1 tab Q4HP PRN PO 03/10/25 14:45 Ondansetron HCl 4 mg Q4HP PRN IV 03/10/25 14:45 Docusate Sodium 100 mg BIDPRN PRN PO 03/10/25 14:45 Acetaminophen 650 mg Q6HP PRN PO 03/10/25 14:45 Nitroglycerin 0.4 mg Q5MINP PRN SL 03/10/25 14:45 Morphine Sulfate 2 mg Q30M PRN IV 03/10/25 14:45 Atorvastatin Calcium 20 mg DAILY PO 03/11/25 10:00 03/11/25 09:31 20 MG Metoprolol Tartrate 25 mg BID PO 03/10/25 22:00 03/11/25 10:45 25 MG Patient Own Medication 30 mg DAILY PO 03/11/25 10:00 UNV Patient Own Medication 40 mg DAILY PO 03/11/25 10:00 UNV Hydralazine HCl 10 mg Q6HP PRN IV 03/10/25 15:45 03/11/25 06:31 10 MG Isosorbide Mononitrate 30 mg DAILY PO 03/11/25 10:00 03/11/25 09:29 30 MG Pantoprazole Sodium 40 mg DAILY PO 03/11/25 10:00 03/11/25 09:31 40 MG Diagnostic Test (Pha) 1 strip ACHS 03/10/25 22:00 03/11/25 11:30 1 STRIP Insulin Human Regular ACHS SC 03/10/25 22:00 03/11/25 12:20 4 UNITS Dextrose 50 ml UD PRN IV 03/10/25 18:15 Losartan Potassium 12.5 mg DAILY PO 03/11/25 10:00 03/11/25 09:28 12.5 MG Examination Physical examination: General Appearance: Alert, Oriented X3, Cooperative, No acute distress HEENT: Atraumatic, PERRLA, EOMI, Mucous membrane moist/pink Respiratory: Clear to auscultation, Normal air movement Cardiovascular: Regular rate, Normal S1, Normal S2, No murmurs, no chest wall tenderness Abdominal: Normal bowel sounds, Soft, No tenderness, No hepatospenomegaly, No masses Extremities: No clubbing, No cyanosis, No edema, Normal pulses, No tenderness/swelling Skin: No rashes, No breakdown, No significant lesion Neuro: Normal speech, Strength at 5/5 X4 ext, Normal tone, Sensation intact, Cranial nerves 3-12 NL, Reflexes 2+ Psych/Mental Status: Mental status NL, Mood NL laboratory and microbiology Laboratory Tests 03/11/25 04:05 Test 03/11/25 04:05 Range/Units Serum Glucose 132 #H 74-106 mg/dL Microbiology Date/Time Source Procedure Growth Status 03/10/25 19:50 Nose MRSA Screen - Final Complete Labs and/or images reviewed: Labs reviewed by me, Image(s) reviewed by me Problem List/Assessment/Plan Problem List/Assessment/Plan Assessment and plan: NEURO: Acute metabolic encephalopathy due to acute ischemic stroke - MRI of the brain showed small acute infarct left cerebellar hemisphere measuring 6 mm CARDIOVASCULAR: Coronary artery disease with status post PTCA x1 in LAD History of previous PCI in 2005 Hypertensive heart disease - Pending echo - continue aspirin 81 mg p.o. daily and Brilinta 90 mg p.o. b.i.d. - atorvastatin 20 mg p.o. at HS - metoprolol tartrate 25 mg p.o. b.i.d. - losartan 12.5 mg daily - isosorbide mononitrate 30 mg p.o. daily ENDOCRINE: Type 2 diabetes mellitus - mild sliding scale of insulin MUSCULOSKELETAL: Chronic back pain due to degenerative disc disease - [place] 5/325 mg q.4 PRN DERMATOLOGY: Skin cancer right now in remission, multiple Mohs surgery DIET: Cardiac diet DVT prophylax: GI prophylaxis: Protonix Bowel regimen: Code status: Full code LINES/DRAINS/ACCESS: IV access: Peripheral line Lanza catheter: DISPOSITION: Telemetry Patient's status discussed with Patient, attending ambulatory care time spent more than 66 minutes, including patient care, chart review, and updating the family. Excluding any procedures. Plan discussed with: Patient, Other (RN) My Orders My Orders Orders - TOM TA Procedure Category Date Status Time Transfer Orders XFER 03/11/25 Transmitted 15:56 Date of Service: Mar 11, 2025 Billing Provider: JILL GRANADOS MD Common Visit Codes: 85563-[id number] CARE 30-74 MIN TOM TA Mar 11, 2025 16:34 JILL GRANADOS MD Mar 12, 2025 12:38
[2025-03-11] MEDS: SODIUM CHLORIDE 0.9% 1,000 ML IV SCH (18:00)
[2025-03-11 19:03] LABS: Hematocrit 36.1 % (41.0-53.0); Hemoglobin 12.3 g/dL (13.5-17.5)
[2025-03-12] VITALS (10 sets, daily range): BP systolic 112–176; BP diastolic 43–84; PULSE 56–87; RESP 11–19; TEMP 97.5–98.7; O2SAT 98–100
--- NOTE | 2025-03-12 00:11 | DVHEEG2 ---
Neurology EEG Procedural Note Procedural Note EXAM DATE: 03/11/2025 REFERRING DOCTOR: Dr. Armstrong TECHNIQUE: Eighteen channels of EEG, 2 channels of EOG, and 1 channel of EKG were recorded using the [employer] 10/20 system. CLINICAL DATA: The patient was referred for an EEG evaluation for the evidence of seizure disorder. MEDICATIONS: See the chart BACKGROUND ACTIVITY: He is asleep during this recording, during brief arousals, the background activity appeared to be fairly regulated 8 Hz rhythmic waveforms, symmetrically distributed over both posterior quadrants and was reactive to external stimuli ACTIVATION: Hyperventilation: Not done Photic Stimulation: Not done Sleep: Noticed IMPRESSION: This is a normal EEG. No focal, lateralized, or epileptiform features are noted. If clinically indicated to rule out a seizure disorder, recommend repeat EEG with sleep deprivation. The EKG channel showed a regular heart rate of 60 per minute. [place] [address] CHENTE ARMSTRONG MD Mar 12, 2025 00:11
[2025-03-12 07:12] LABS: Calcium 8.9 mg/dL (8.7-10.4); Chloride 105 mmol/L (98-107); Sodium 141 mmol/L (136-145)
[2025-03-12 07:13] LABS: Anion Gap 13 (5-15); Carbon Dioxide 23 mmol/L (20-31)
[2025-03-12 07:16] LABS: Hematocrit 35.4 % (41.0-53.0); Hemoglobin 12.2 g/dL (13.5-17.5); Mean Corpuscular Hemoglobin 29.6 pg (28.0-32.0); Mean Corpuscular Volume 85.8 fL (80.0-100.0); Nucleated Red Blood Cells % 0.0 %
[2025-03-12 07:18] LABS: BUN/Creatinine Ratio 17.6 (10.0-20.0); Blood Urea Nitrogen 16 mg/dL (9-23)
[2025-03-12 07:28] LABS: Glucose 150 mg/dL (74-106); Potassium 3.2 mmol/L (3.5-5.1)
--- NOTE | 2025-03-12 07:55 | DVHPN2 ---
Progress Note - Dictate Date Seen: Mar 12, 2025 Medical Necessity Reason Pt with a Central, PICC or Fol: Yes vital signs Vital Sign Date Time Temp Pulse Resp B/P (MAP) Pulse Ox O2 Delivery O2 Flow Rate FiO2 03/12/25 06:35 63 136/76 (96) 03/12/25 05:00 97.5 18 100 97.5 03/11/25 20:00 Nasal Cannula* 2 28 Total Intake and Output 03/11/25 03/11/25 03/12/25 15:00 23:00 07:00 Intake Total 400 ml 1175 ml 465 ml Output Total 300 ml 550 ml Balance 400 ml 875 ml -85 ml medications Current Medications Medications Dose Ordered Sig/Lex Route Start Time Stop Time Status Last Admin Dose Admin Ticagrelor 90 mg BID PO 03/10/25 22:00 03/11/25 21:35 90 MG Aspirin 81 mg DAILY PO 03/11/25 10:00 03/11/25 09:31 81 MG Acetaminophen/ Hydrocodone Bitart 1 tab Q4HP PRN PO 03/10/25 14:45 Ondansetron HCl 4 mg Q4HP PRN IV 03/10/25 14:45 Docusate Sodium 100 mg BIDPRN PRN PO 03/10/25 14:45 Acetaminophen 650 mg Q6HP PRN PO 03/10/25 14:45 Nitroglycerin 0.4 mg Q5MINP PRN SL 03/10/25 14:45 Morphine Sulfate 2 mg Q30M PRN IV 03/10/25 14:45 Atorvastatin Calcium 20 mg DAILY PO 03/11/25 10:00 03/11/25 09:31 20 MG Metoprolol Tartrate 25 mg BID PO 03/10/25 22:00 03/11/25 21:35 25 MG Patient Own Medication 30 mg DAILY PO 03/11/25 10:00 UNV Patient Own Medication 40 mg DAILY PO 03/11/25 10:00 UNV Hydralazine HCl 10 mg Q6HP PRN IV 03/10/25 15:45 03/12/25 04:38 10 MG Isosorbide Mononitrate 30 mg DAILY PO 03/11/25 10:00 03/11/25 09:29 30 MG Pantoprazole Sodium 40 mg DAILY PO 03/11/25 10:00 03/11/25 09:31 40 MG Diagnostic Test (Pha) 1 strip ACHS 03/10/25 22:00 03/12/25 06:58 1 STRIP Insulin Human Regular ACHS SC 03/10/25 22:00 03/12/25 06:59 3 UNITS Dextrose 50 ml UD PRN IV 03/10/25 18:15 Losartan Potassium 12.5 mg DAILY PO 03/11/25 10:00 03/11/25 09:28 12.5 MG Sodium Chloride 1,000 ml @ 75 mls/hr [id number] IV 03/11/25 18:00 03/12/25 07:32 75 MLS/HR laboratory and microbiology Laboratory Tests 03/12/25 05:44 Test 03/12/25 05:44 Range/Units Serum Glucose 150 H 74-106 mg/dL Assessment/Plan Patient is a 84-year-old gentleman who originally presented to the hospital for elective cardiac catheterization. He had presented to the office with occasional chest discomfort. He has past history included coronary artery disease and status post Old PCIs. And nuclear stress test of December 2024 was abnormal in the patient who had been sent for cardiac catheterization. Cardiac catheterization was performed. After cardiac catheterization, the patient's somehow became confused and had some dysarthria. Code stroke was called. Imaging of the brain has been performed. MRI questions small cerebral CVA. Patient has been started on aspirin/Brilinta (had PCI/drug-eluting stent deployment of LAD and balloon angioplasty of ramus intermedius). Denies acute distress. Alert and oriented X3, No JVD. Mucosa is pink and wet. No carotid bruit. No goiter. Not using accessory muscles of breathing. Lungs are clear to auscultation. Cardiac: Regular, no thrill/gallop. Lungs are clear to auscultation Abdomen is soft. Bowel sound is positive. There is no gross mass/hepatomegaly. There is no peripheral edema. Dorsalis pedis is 2+ bilateral. Cardiac catheterization access site (right radial) without hematoma. Capillary filling is 2+. Past medical history included coronary artery disease and old history of PCI, degenerative disc disease, low back pain, diabetes mellitus, hypertension and history of poor hearing. Outside Echocardiogram revealed ejection fraction of 60 65%, mild concentric left ventricular hypertrophy, mild mitral valve prolapse/MR/TR. There was moderate mitral annular calcification and right ventricular systolic pressure was less than 35 mm Hg. Nuclear stress test of December 2024 was abnormal. Hemoglobin: 14.1 - 13.3 - 12.3 - 12.2 WBC: 14.1 - 14.2 - 9.4 Creatinine: 0.94 - 0.85 - 0.91 Potassium: 3.7 - 3.5 - 3.2 Magnesium: 2.1 TSH: 0.85 BNP: 638.29 LDL: 55 Chest x-ray revealed: LUNGS: No pleural effusion, consolidation, or pneumothorax. Central pulmonary vascular congestion. Peripheral interstitial edema MEDIASTINUM: Unremarkable BONES: No acute osseous abnormality OTHER: None CT of the head revealed: IMPRESSION: 1. Global brain atrophy and chronic ischemic changes without evidence of acute intracranial process. 2. Severe left- sided paranasal sinus disease, greatest in the frontal and maxillary sinuses. Recommend nonemergent otolaryngology consultation if not already obtained. CT angio of the head and neck revealed: MRI of the brain revealed: IMPRESSION: Examination degraded by motion. 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 [id number]-[id number] chronic microvascular ischemic changes. Paranasal sinus disease. Bilateral mastoid effusions. Cardiac catheterization revealed: Multivessel coronary artery disease. Status post PCI/drug-eluting stent deployment of mid/distal LAD. Status post balloon angioplasty of ramus intermedius. Status post attempted balloon angioplasty of LCX. Remaining vessels to be managed medically Echocardiogram revealed: Left ventricle: Mild Concentric left ventricular hypertrophy was seen. LVEF was 64%. There was no gross wall motion abnormality. Right ventricle was normal-sized with normal systolic function. Mild biatrial enlargement was seen. Aortic valve was trileaflet. Aortic sclerosis with no stenosis was observed. There was no aortic insufficiency. There was mild mitral regurgitation. Local calcification of posterior mitral valve leaflet was observed. There was mild tricuspid regurgitation. There was mild pulmonary valve insufficiency. Right ventricular systolic pressure was assessed normal at 28 mm Hg. There was no pericardial effusion. Patient is a 84-year-old gentleman who originally presented with elective cardiac catheterization secondary to abnormal stress test and chest pain. Patient was found to have multivessel coronary artery disease. Patient had PCI/drug-eluting stent deployment of LAD. Balloon angioplasty of ramus intermedius was performed. Post cardiac catheterization, the patient became somewhat confused and code stroke was called. He is found to have small cerebellar CVA. Patient is evaluated by Neurology and the CVA was considered likely incidental finding versus complication of cardiac catheterization. As per Neurology, mental status change was on likely secondary to stroke. Was found to have some leukocytosis, could sepsis have contributed to to the clinical picture? Found to have small cerebellar CVA. Seen by Neurology who does not believe patient's post procedure findings (AMS) was caused by CVA. Neurology mentions CVA is " like incidental finding". Post cardiac cath CVA is likely. EEG was non-revealing. Altered mental status Encephalopathy Acute CVA, small cerebellar Coronary artery disease status post PCI Diabetes mellitus Hypertension Poor hearing Cardiac suggestion for management: Manage on telemetry Follow-up electrolytes and kidney function tests and correct abnormalities Dual antiplatelet therapy (Brilinta/aspirin) for at least 1 year Statin Beta zane, AMY inhibitor versus ARB Neurology follow up Attempt to take johnson out and see if he can urinate with no problem Further evaluation and management depends on the above and clinical course A total of 55 minutes was spent reviewing the patient record, examining the patient, making a diagnostic and therapeutic plan, discussing this plan with medical personnel, following up on diagnostic studies and following the patient for clinical stability excluding any and all procedures. At least 50% of this time was spent in direct, [id number] contact. Thank you for allowing me to participate in this patient's care. Further recommendations will depend on patient's clinical course. Please do not hesitate to contact me if you have any questions or concerns. This medical document was created using electronic medical record system with [employer] computerized dictation system. Although this document has been carefully reviewed, there may still be some phonetic and typographical errors. These areas are purely typographical due to the imperfection of the software programs, and do not reflect any compromise in the patient's medical care. Plan discussed with: Patient, Other (nurse) LAURIE URIOSTEGUI MD Mar 12, 2025 07:55
[2025-03-12] MEDS ORDERED: LOSA-533 PO (08:56)
[2025-03-12] MEDS ORDERED: ASPI81CH59 PO (08:56)
[2025-03-12] MEDS ORDERED: TICA90TA PO ×2 (08:56→14:30)
[2025-03-12 10:29] LABS: Chloride 103 mmol/L (98-107); Sodium 137 mmol/L (136-145)
[2025-03-12 10:30] LABS: Anion Gap 11 (5-15); Calcium 9.0 mg/dL (8.7-10.4); Carbon Dioxide 23 mmol/L (20-31)
[2025-03-12 10:33] LABS: Potassium 3.4 mmol/L (3.5-5.1)
[2025-03-12] MEDS: POTASSIUM EFFERVESENT TAB 25 MEQ PO ONE (10:33)
[2025-03-12 10:35] LABS: BUN/Creatinine Ratio 14.3 (10.0-20.0); Blood Urea Nitrogen 13 mg/dL (9-23)
[2025-03-12 10:37] LABS: Glucose 240 mg/dL (74-106)
--- NOTE | 2025-03-12 17:55 | DVHDSRES ---
Discharge Summary Date of Admission Resident Creating Document: TOM TA RESIDENT Mar 10, 2025 at 14:45 Date of Discharge: Mar 12, 2025 Admitting Diagnosis s/p stent placement, inchemic stroke Wounds: No open wound was present Labs/Diagnostic Data: Laboratory Results Test 03/12/25 09:56 03/12/25 06:48 03/12/25 05:44 03/11/25 10:45 Sodium Level 137 mmol/L (136-145) Potassium Level 3.4 mmol/L (3.5-5.1) Chloride Level 103 mmol/L (98-107) Carbon Dioxide Level 23 mmol/L (20-31) Anion Gap 11 (5-15) Blood Urea Nitrogen 13 mg/dL (9-23) Creatinine 0.91 mg/dL (0.700-1.30) Glomerular Filtration Rate Calc 83 mL/min (>90) BUN/Creatinine Ratio 14.3 (10.0-20.0) Serum Glucose 240 mg/dL (74-106) Calcium Level 9.0 mg/dL (8.7-10.4) POC Glucose 166 mg/dl (70-106) White Blood Count 9.4 10^3/uL (4.4-10.8) Red Blood Count 4.12 10^6/uL (4.5-5.90) Hemoglobin 12.2 g/dL (13.5-17.5) Hematocrit 35.4 % (41.0-53.0) Mean Corpuscular Volume 85.8 fL (80.0-100.0) Mean Corpuscular Hemoglobin 29.6 pg (28.0-32.0) Mean Corpuscular Hemoglobin Concent 34.5 g/dL (32.0-36.0) Red Cell Distribution Width 15.4 % (11.8-14.3) Platelet Count 226 10^3/uL (140-450) Mean Platelet Volume 8.7 fL (6.9-10.8) Neutrophils (%) (Auto) 67.4 % (37.0-80.0) Lymphocytes (%) (Auto) 16.4 % (10.0-50.0) Monocytes (%) (Auto) 15.3 % (0.0-12.0) Eosinophils (%) (Auto) 0.4 % (0.0-7.0) Basophils (%) (Auto) 0.5 % (0.0-2.0) Neutrophils # (Auto) 6.4 10 ^3/uL (1.6-8.6) Lymphocytes # (Auto) 1.5 10 ^3/uL (0.4-5.4) Monocytes # (Auto) 1.4 10 ^3/uL (0-1.3) Eosinophils # (Auto) 0 10 ^3/uL (0-0.8) Basophils # (Auto) 0 10 ^3/uL (0-0.2) Nucleated Red Blood Cells 0.0 % Prothrombin Time 11.6 sec (9.3-11.8) Prothrombin Time INR 1.11 (0.9-1.15) Activated Partial Thromboplast Time 35.4 SEC (24.5-34.5) Test 03/11/25 04:05 Magnesium Level 2.1 mg/dL (1.6-2.6) Total Bilirubin 1.1 mg/dL (0.2-1.0) Aspartate Amino Transferase (AST) 103 U/L (13-40) Alanine Aminotransferase (ALT) 20 U/L (7-40) Alkaline Phosphatase 78 U/L (46-116) B-Type Natriuretic Peptide 638.29 pg/mL (0-100) Total Protein 7.1 g/dL (5.7-8.2) Albumin 4.0 g/dL (3.2-4.8) Triglycerides Level 106 mg/dL (< 150) Cholesterol Level 115 mg/dL (< 200) LDL Cholesterol 55 mg/dL (< 100) HDL Cholesterol 50 mg/dL (40-59) Thyroid Stimulating Hormone (TSH) 0.85 uIU/mL (0.55-4.78) Other Laboratory Tests 03/12/25 09:56 03/12/25 05:44 Brief Hx & Hospital Course: Hospital course: This is a 84-year-old male with past medical history of coronary artery disease, PTCA x1 in 2005, type 2 diabetes mellitus, skin cancer presented to the hospital for elective left heart catheterization. Nuclear stress done in December 2024 was abnormal and patient had mentioned intermittent chest discomfort since last couple of month. Cardiac catheterization with PTCAX1 to LAD was performed, after cardiac catheterization the patient has became confused and had some dysarthria. Code Stroke was called. MRI of the brain showed small acute infarct left cerebellar hemisphere measuring 6 mm. Patient has been started on aspirin/Brilinta (had PCI/drug-eluting stent deployment of LAD and balloon angioplasty of ramus intermedius). Patient was seen and examined in the ICU on the bedside. He is alert oriented x3. No active complaint, denies any weakness any part of the body, headache, dysarthria or speech difficulties. Downgraded to telemetry. Physical therapy was on board and patient was able to walk without any gait disturbances. Discharge plan was discussed with the patient and all questions were answered, discussed the importance of continuation of the DAPT for 1 year and advised to resume home medications. He was also advised to follow up with PCP and Cardiology in next 1- 2 weeks. Patient is being discharged to home. Physical examination: General Appearance: Alert, Oriented X3, Cooperative, No acute distress HEENT: Atraumatic, PERRLA, EOMI, Mucous membrane moist/pink Respiratory: Clear to auscultation, Normal air movement Cardiovascular: Regular rate, Normal S1, Normal S2, No murmurs, no chest wall tenderness Abdominal: Normal bowel sounds, Soft, No tenderness, No hepatospenomegaly, No masses Extremities: No clubbing, No cyanosis, No edema, Normal pulses, No tenderness/swelling Skin: No rashes, No breakdown, No significant lesion Neuro: Normal speech, Strength at 5/5 X4 ext, Normal tone, Sensation intact, Cranial nerves 3-12 NL, Reflexes 2+ Psych/Mental Status: Mental status NL, Mood NL Diagnosis: Acute metabolic encephalopathy due to acute ischemic stroke Coronary artery disease with status post PTCA x1 in LAD History of previous PCI in 2005 Hypertensive heart disease Type 2 diabetes mellitus Skin cancer right now in remission, multiple Mohs surgery Chronic back pain due to degenerative disc disease Time spent in discharge summary, including plan discussed with patient and nurses for more than 42 minutes Consults/Reason for consult Cardiology was consulted Operations or Procedures Operative Report Procedures performed: Left heart catheterization and bilateral coronary angiogram Moderate sedation lasting more than 90 minutes PCI/drug-eluting stent deployment of mid and distal LAD Balloon angioplasty of ramus intermedius Attempted Balloon angioplasty of proximal LCX Diagnosis: Multivessel coronary artery disease Status post PCI/drug-eluting stent deployment of mid and distal LAD. Ramus intermedius had 90% lesion, status post balloon angioplasty LCX: LCX had up to 95% lesion prior to the patent stent in it, status post attempted balloon angioplasty RCA: RCA had up to 70% in stent stenosis LVEF: 65% Cardiac suggestion for management: Dual antiplatelet therapy (loaded with Brilinta/aspirin) for at least 1 year High potency statin, beta blockers, AMY inhibitors versus ARB Optimized medical therapy Lifestyle and risk factor modifications Medical therapy for lesions in RCA/LCX/ramus intermedius is suggested (if patient is symptomatic, PCI in higher level of care can be justified) Findings: LVEF: 65% LVEDP: 15 mm Hg There was no transaortic valve pressure gradient Left main: Left main was coming off the left sinus of Valsalva. It was free of disease. LAD: LAD was coming off the left main. Mid LAD had 95% lesion. Distal LAD had 95% lesion. LCX: LCX was coming off the left main. There was a patent stent in proximal to mid LCX. There was 99% lesion prior to the stent Ramus intermedius: Ramus intermedius was a medium-sized vessel which came off the left main. It had 99% proximal lesion RCA: RCA was coming off the right sinus of Valsalva. It was a dominant vessel. Was a patent stent in proximal RCA. There was a focal 70% lesion in proximal section of the stent. Presentation: Patient is a 84-year-old gentleman who presented to the office with chest pain. Does have history of coronary artery disease and has had PCI in 2005 (LCX/RCA). Other comorbidities include diabetes mellitus, hypertension, low back pain, integrative disc disease and hard of hearing. He has had cholecystectomy before. Echocardiogram revealed ejection fraction of 60-65%, mild concentric left ventricular hypertrophy, mild MVP/MR/TR. Right ventricular systolic pressure was less than 35 mm Hg. Nuclear stress test of December 2024 was abnormal and the patient was sent for cardiac catheterization. Procedure: After obtaining informed consent, the patient was brought to the labor union business representative. He was prepped and draped in sterile fashion. Right radial artery was used for access site. In total, 3 mg of Versed and 100 mcg of fentanyl and 2 mg of Dilaudid was used for moderate sedation (lasting more than 90 minutes). Using Seldinger technique, the right radial artery was accessed and 6 Norwegian slender sheath was inserted into it. 2.5 mg of verapamil and 200 mcg of nitroglycerin were given as a cocktail into the right radial sheath. 4000 units of heparin was given peripherally. A 5 Norwegian tiger 4 diagnostic catheter was used to perform left heart catheterization (obtaining pressures and performing left ventriculography) and right coronary angiography. A 5 Norwegian 3.5 JL diagnostic catheter was used to perform left coronary angiography. We did recognize multivessel disease. We did observe the patient's comorbidities and age and decided to proceed with percutaneous intervention. Patient was started on Angiomax. We started with intervening in LAD. A 6 Norwegian XB 3 guiding catheter was used to access the left coronary system. A run-through wire was used to cross the lesions in LAD. A 2.5 by 15 compliant balloon was used to perform predilatation in mid LAD and distal LAD lesions. We proceeded to deploy stents. A 2.25 x 15 drug-eluting desirae stent was deployed across the distal LAD lesion and inflated to 16 atmospheres. A 2.5 x 15 drug-eluting desirae stent was deployed across the mid LAD lesion (inflated to 16 atmospheres). At this point we decided to proceed with intervention in ramus intermedius. Run-through wire crossed the lesion in ramus intermedius. Balloon angioplasty of the ramus intermedius lesion was performed using a 2.5 x 15 compliant balloon repeatedly. Stent could not cross the lesion. At this point we recognized that the lesion in proximal LCX had closed. We used multiple wires to cross the lesion unsuccessfully. We even used balloon over the wire technique unsuccessfully. Patient himself regained flow (BO 3 flow) into LCX territory. Our wire did not cross. Decision was made to forego any further attempts for intervening (patient received 39 minutes of fluoro time and 6300 DAP). He was asymptomatic. There was no EKG changes. It did not have any chest pain. It is of note that prior to intervention in LAD, BO flow into LAD was BO 3 flow. Post intervention in LAD, mid LAD lesion had 0% remaining lesion and distal LAD had 0% remaining lesion. Post intervention in LAD, BO flow into LAD remained BO 3 flow. Prior to intervention in ramus intermedius, BO flow into ramus intermedius was BO 3 flow, post intervention BO flow into ramus intermedius remained BO 3 flow. Post intervention in ramus intermedius (balloon angioplasty) the remaining disease in ramus intermedius was 40%. Previous attempt for intervention in LCX, BO flow into LCX with BO 3 flow, post intervention BO flow into LCX remained BO 3 flow. Lesion in LCX remain the same (we could not cross it). Total bleeding was less than 20 mL. There was no dissection/hematoma/perforation. Patient tolerated procedure with no complications. Right radial artery access site was managed by a TR band. Fluoroscopy time: 39.5 minutes contrast: 280 mL of Visipaque PROCEDURE: MRI BRAIN HEAD WO CONTRAST Indication: R/O stroke COMPARISON: 03/10/2025 TECHNIQUE: Multiplanar multisequence images of the brain are obtained. FINDINGS: Examination degraded by motion There is small region friction in the left cerebellum measuring 6 mm. Uczz-oy-lbfngohm periventricular and subcortical white matter T2 and FLAIR hyperintense changes. There is no intracranial hemorrhage. No extra-axial fluid collection, mass effect or midline shift. The ventricles are midline and normal in size. The cisterns are patent. Normal intracranial flow voids are preserved. No abnormal susceptibility signal. Frontal, ethmoid, left maxillary sinus disease. Bilateral mastoid effusions The visualized orbits are unremarkable. IMPRESSION: Examination degraded by motion. 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 Aedl-[id number]-iwtmimca chronic microvascular ischemic changes. Paranasal sinus disease. Bilateral mastoid effusions. Condition at Discharge: Stable Final Diagnosis/Problems List Acute metabolic encephalopathy due to acute ischemic stroke Coronary artery disease with status post PTCA x1 in LAD History of previous PCI in 2005 Hypertensive heart disease Type 2 diabetes mellitus Skin cancer right now in remission, multiple Mohs surgery Chronic back pain due to degenerative disc disease Discharge Disposition: Home Discharge Instruct/Medications Diet: Cardiac 2g Na,low cholest Activity: No Restrictions, As Tolerated Follow Up/Referral: Follow up with DC clinic in 1 week Follow up with Cardiology in 1 to 2 weeks Medications: As per EMR Scheduled Aspirin (Aspirin Low Dose), 1 TAB PO DAILY Atorvastatin Calcium (Atorvastatin Calcium), 1 TAB PO DAILY, (Reported) Isosorbide Mononitrate (Isosorbide Mononitrate Er), 30 MG PO DAILY, (Reported) Losartan Potassium (Losartan Potassium), 0.5 TAB PO DAILY Metformin HCl (Metformin Hydrochloride), 1,000 MG PO DAILY, (Reported) Methylcellulose (Laxative) (Fiber Therapy), 500 MG PO DAILY, (Reported) Metoprolol Tartrate (Metoprolol Tartrate), 1 TAB PO BID, (Reported) Montelukast Sodium (Montelukast Sodium), 1 TAB PO DAILY, (Reported) Nitroglycerin (Ntrostat Sublingual), 0.4 MG SL PRN, (Reported) Omeprazole (Gnp Omeprazole), 40 MG PO DAILY, (Reported) Sitagliptin Phosphate (Januvia), 1 TAB PO DAILY, (Reported) Ticagrelor Base (Brilinta), 90 MG PO BID Discontinued Medications Clopidogrel Bisulfate (Plavix), 1 TAB PO DAILY, (Reported) Discharge Statement: "Patient was advised to return to the ER or call 911 if any headaches, dizziness, shortness of breath, chest pain, abdominal pain, bleeding, fevers, or worsening of medical condition. Patient was counseled about treatment plan, medications, possible side effects, patientverbalized understanding. All questions were answered to the best of my ability. This discharge took greater then 30 minutes in planning, reviewing documentation, counseling the patient, and discussing with other team members." ASSESSMENT ASSESSMENT Assessment s/p stent placement, inchemic stroke Date of Service: Mar 12, 2025 Billing Provider: JILL GRANADOS MD Common Visit Codes: 31481-ZLP/OBS DISCH DAY >30min TOM TA RESIDENT Mar 12, 2025 17:55 JILL GRANADOS MD Mar 14, 2025 12:09
== END 2025-03-12 16:00 | disposition home or self-care (01) | DRG 321 ==
LOC: CATH 06:30 → OVERFLOW 14:45 → ICU WEST 19:50 → TELE-WESTW 03-12 02:29
PROVIDERS: ADMIT Internal Medicine; ATTEND Internal Medicine Cardiovascular Disease
PROC: 027136Z Dilation of Coronary Artery, Two Arteries with Three Drug-eluting Intraluminal Devices, Percutaneous Approach (ICD-10-PCS; principal; 2025-03-10)
PROC: 02703ZZ Dilation of Coronary Artery, One Artery, Percutaneous Approach (ICD-10-PCS; 2025-03-10)
PROC: B215YZZ Fluoroscopy of Left Heart using Other Contrast (ICD-10-PCS; 2025-03-10)
PROC: 4A023N7 Measurement of Cardiac Sampling and Pressure, Left Heart, Percutaneous Approach (ICD-10-PCS; 2025-03-10)
PROC: B211YZZ Fluoroscopy of Multiple Coronary Arteries using Other Contrast (ICD-10-PCS; 2025-03-10)
DX: T82.855A Stenosis of coronary artery stent, initial encounter (principal); G92.8 Other toxic encephalopathy; I63.542 Cerebral infarction due to unspecified occlusion or stenosis of left cerebellar artery; G93.41 Metabolic encephalopathy; I34.81 Nonrheumatic mitral (valve) annulus calcification; I37.1 Nonrheumatic pulmonary valve insufficiency; I70.0 Atherosclerosis of aorta; I34.1 Nonrheumatic mitral (valve) prolapse; G31.9 Degenerative disease of nervous system, unspecified; I11.9 Hypertensive heart disease without heart failure; I25.10 Atherosclerotic heart disease of native coronary artery without angina pectoris; E11.9 Type 2 diabetes mellitus without complications; K21.9 Gastro-esophageal reflux disease without esophagitis; E78.00 Pure hypercholesterolemia, unspecified; G89.29 Other chronic pain; M54.9 Dorsalgia, unspecified; Z95.5 Presence of coronary angioplasty implant and graft; Z88.0 Allergy status to penicillin; Z90.49 Acquired absence of other specified parts of digestive tract; Z79.899 Other long term (current) drug therapy; Z79.84 Long term (current) use of oral hypoglycemic drugs; Z79.02 Long term (current) use of antithrombotics/antiplatelets; Z85.828 Personal history of other malignant neoplasm of skin; Z98.890 Other specified postprocedural states; Y83.1 Surgical operation with implant of artificial internal device as the cause of abnormal reaction of the patient, or of later complication, without mention of misadventure at the time of the procedure
CPT/HCPCS: 36415; 70450; 70496; 70498; 70551; 71045; 80048; 80053; 80061; 82962; 83735; 83880; 84443; 85014; 85018; 85025; 85610; 85730; 87081; 93005; 93306; 95819; 97163; 99152; C1874; G0378; J1815; J2250; Q9967